=== PATIENT | female | born 1975 ===

== ENCOUNTER 2019-07-01 07:00 | Day surgery (SDC) | payer OTHER ==
[~2019-07-01] VITALS: Ht 149.9 cm; Wt 63.0 kg
[~2019-07-01 07:00] MED LIST: ATACAND HCT 321 EAC1 PO
[2019-07-01] MEDS ORDERED: TAMOXIFEN CITRA20 MG PO (10:39)
== END 2019-07-02 08:00 | disposition home or self-care (01) ==
LOC: RECOVERY 07:00 → EDSTATUS 07:00 → CIR.AMB 07:00 → RECOVERY 08:41 → SURH 15:41 → O/R 15:41 → CIR.AMB 07-02 08:00 → SURH 07-02 13:09 → O/R 07-02 13:09
PROVIDERS: Plastic Surgery; Surgery
PROC: C71L1ZZ Planar Nuclear Medicine Imaging of Upper Chest Lymphatics using Technetium 99m (Tc-99m) (ICD-10-PCS; 2019-07-01)
PROC: 0HHT0NZ Insertion of Tissue Expander into Right Breast, Open Approach (ICD-10-PCS; 2019-07-01)
PROC: 0HTT0ZZ Resection of Right Breast, Open Approach (ICD-10-PCS; principal; 2019-07-01 11:45)
PROC: 07B50ZZ Excision of Right Axillary Lymphatic, Open Approach (ICD-10-PCS; 2019-07-01 11:45)
DX: C50.111 Malignant neoplasm of central portion of right female breast (principal); Z41.1 Encounter for cosmetic surgery; I10 Essential (primary) hypertension; Z90.11 Acquired absence of right breast and nipple; Z17.1 Estrogen receptor negative status [ER-]
CPT/HCPCS: 19303; 38525; 19357; 78195; A9541

== ENCOUNTER 2022-03-07 05:52 | Day surgery (SDC) | payer OTHER ==
[~2022-03-07] VITALS: Ht 149.9 cm; Wt 66.7 kg
[~2022-03-07 05:52] MED LIST changes: +ARIMIDEX PO; +TAMOXIFEN CITRA20 MG PO
== END 2022-03-07 13:45 | disposition home or self-care (01) ==
LOC: CIR.AMB 05:52
PROVIDERS: ATTEND Plastic Surgery
DX: N65.1 Disproportion of reconstructed breast (principal); C50.919 Malignant neoplasm of unspecified site of unspecified female breast; Z90.10 Acquired absence of unspecified breast and nipple; Z20.822 Contact with and (suspected) exposure to COVID-19; I10 Essential (primary) hypertension; G47.33 Obstructive sleep apnea (adult) (pediatric); Z92.29 Personal history of other drug therapy
CPT/HCPCS: 11970; 19316; L8600

== ENCOUNTER → 2022-05-23 | Day surgery (SDC) | payer OTHER ==
[~2022-05-23] VITALS: Ht 149.9 cm; Wt 67.1 kg
[~2022-05-23] MED LIST changes: +ANASTROZOLE1 MG; +CANDESARTAN CIL16 MG; +ZOLPIDEM TARTRA10 MG
== END | disposition home or self-care (01) ==
LOC: ER 05:18 → SEC-K 08:27 → CIR.AMB 08:27 → ER 08:27 → O/R 08:27 → SEC-K 09:57 → EDSTATUS 10:00 → O/R 14:20
PROVIDERS: ATTEND General Practice
DX: T81.30XA Disruption of wound, unspecified, initial encounter (principal); Z90.11 Acquired absence of right breast and nipple; C50.919 Malignant neoplasm of unspecified site of unspecified female breast; L91.0 Hypertrophic scar; Z20.822 Contact with and (suspected) exposure to COVID-19